=== PATIENT | male | born 1945 | race Caucasian/White ===

== ENCOUNTER 2019-09-18 17:27 | Outpatient (CLI) | payer MEDICARE ==
--- NOTE | 2019-09-18 17:52 | RAD ---
EXAM: XR Hand Rt 3 View STANDARD PROVIDED CLINICAL HISTORY: Arthritis COMPARISON: None FINDINGS: No evidence for fracture or other acute osseous abnormality. Advanced first CMC degenerative changes demonstrated. Degenerative changes at the second and third MCP joints are less conspicuous with subluxation of the second MCP joint to a mild degree. Alignment appears otherwise anatomic. Joint [facility] appear otherwise preserved. IMPRESSION: Advanced first CMC degenerative arthrosis.
--- NOTE | 2019-09-18 17:53 | RAD ---
EXAM: XR Hand Lt 3 View STANDARD PROVIDED CLINICAL HISTORY: 3 views left hand COMPARISON: None FINDINGS: Advanced first CMC degenerative changes are seen. No evidence for fracture or other acute osseous abn ormality. Alignment appears anatomic. Joint spaces appear preserved otherwise. IMPRESSION: Advanced first CMC degenerative change.
== END 2019-09-18 17:28 | disposition home or self-care (01) ==
LOC: NAV RAD 17:27
PROVIDERS: ATTEND Allergy & Immunology Allergy
DX: M79.641 Pain in right hand (principal); M79.642 Pain in left hand; M18.0 Bilateral primary osteoarthritis of first carpometacarpal joints